=== PATIENT | male | born 1935 | race Caucasian/White ===

== ENCOUNTER 2019-08-14 09:02 | Emergency (ER) | payer MEDICARE, BC ==
--- NOTE | 2019-08-14 09:56 | CT ---
[id number] CT/CT Head Stroke Protocol EXAM: CT Head Stroke Protocol CLINICAL DATA: POSSIBLE STROKE. COMPARISON STUDY: July 2016. FINDINGS: Encephalomalacia in the left frontal and parietal lobes as well as the right inferior cerebellar hemisphere. 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 Additionally there is a left superior basal ganglia lacunar infarction. Cystic structure in the inferior left basal ganglia could represent either lacunar infarction or dilated perivascular space given its location. There is also diffuse parenchymal atrophy throughout posterior hemispheres most prominent in the frontal lobes. No evidence of acute intracranial hemorrhage. No extra-axial fluid collection or hydrocephalus. Mild left maxillary mucosal thickening. Mastoid air cells are clear. IMPRESSION: No acute intracranial findings. Chronic findings are described above. Results relayed to provider at 0945 hours. Henok Mendoza MD 08/14/19 0955 Thank you for allowing us to participate in the care of your patient.
[2019-08-14 10:01] LABS: CHLORIDE,CL 107 mmol/L (98-107); SODIUM,NA 143 mmol/L (136-145)
[2019-08-14 10:02] LABS: ANION GAP 12.4 mmol/L (10-20)
--- NOTE | 2019-08-14 11:23 | CR ---
[id number] RAD/RAD Chest PA or AP 1V EXAM: RAD Chest PA or AP 1V INDICATION: WEAKNESS. COMPARISON: None. DISCUSSION: Heart is enlarged with central vascular congestion. Low lung volumes result in bibasal vascular crowding/atelectasis. IMPRESSION: No acute findings. Henok Mendoza MD 08/14/19 1122 Thank you for allowing us to participate in the care of your patient.
--- NOTE | 2019-08-14 11:27 | EDM.PDOC ---
ED HPI GENERAL MEDICAL PROBLEM - General Chief Complaint: Neuro Symptoms/Deficits Stated Complaint: STROKE CODE Time Seen by Provider: 08/14/19 09:15 Source of Information: Reports: Patient, EMS, Family, RN History Limitations: Reports: No Limitations - History of Present Illness INITIAL COMMENTS - FREE TEXT/NARRATIVE: Pt is here for a STROKE CODE. was initially seen as a stroke code. He got up this morning and was in his usual state of health. He is always wobbly. He went down 17 stairs and went to the bathroom. He came back up the 17 stairs. His spoke with him and he was speaking normally. When he got to the top of the stairs he became light headed and fell into the wall, breaking the wall in with his elbow. At this point his noted that his speech was garbled. This was at 0817. She called 911 and EMS arrived at 0833. EMS found him with garbled speech but no other obvious neuro abnormalities. - Related Data Allergies Allergy/AdvReac Type Severity Reaction Status Date / Time acetaminophen [From [place]] Allergy Shortness Verified 08/14/19 09:56 of Breath atenolol Allergy Other Verified 08/14/19 09:56 baclofen Allergy Other Verified 08/14/19 09:56 cefixime [From Suprax] Allergy Other Verified 08/14/19 09:56 etodolac Allergy Other Verified 08/14/19 09:56 fenoprofen [From [place]] Allergy Itching Verified 08/14/19 09:56 hydrocodone [From [place]] Allergy Shortness Verified 08/14/19 09:56 of Breath meclofenamic acid Allergy Other Verified 08/14/19 09:56 [From Meclomen] orphenadrine [From Norflex] Allergy Nausea and Verified 08/14/19 09:56 Vomiting Penicillins Allergy Rash Verified 08/14/19 09:56 aspirin AdvReac Stomach Verified 08/14/19 09:56 Ache atorvastatin [From Lipitor] AdvReac Stomach Verified 08/14/19 09:56 Ache clopidogrel [From Plavix] AdvReac Bleeding Verified 08/14/19 09:56 codeine AdvReac Confusion Verified 08/14/19 09:56 corn AdvReac Stomach Verified 08/14/19 09:56 Ache dipyridamole [From Aggrenox] AdvReac Stomach Verified 08/14/19 09:56 Upset duloxetine [From Cymbalta] AdvReac Diarrhea Verified 08/14/19 09:56 Egg Derived AdvReac Nausea Verified 08/14/19 09:56 ezetimibe [From Vytorin] AdvReac Stomach Verified 08/14/19 09:56 Ache indomethacin [From Indocin] AdvReac Stomach Verified 08/14/19 09:56 Ache ketoprofen [From Orudis] AdvReac Stomach Verified 08/14/19 09:56 Ache lisinopril [From Zestril] AdvReac Stomach Verified 08/14/19 09:56 Ache naproxen [From Anaprox] AdvReac Stomach Verified 08/14/19 09:56 Ache NSAIDS (Non-Steroidal AdvReac Stomach Verified 08/14/19 09:56 Anti-Inflamma Ache oxycodone [From Percodan] AdvReac Nausea Verified 08/14/19 09:56 pentazocine [From Talwin] AdvReac Stomach Verified 08/14/19 09:56 Ache piroxicam [From Feldene] AdvReac Stomach Verified 08/14/19 09:56 Ache rosuvastatin [From Crestor] AdvReac Stomach Verified 08/14/19 09:56 Ache simvastatin [From Vytorin] AdvReac Stomach Verified 08/14/19 09:56 Ache sulindac [From Clinoril] AdvReac Stomach Verified 08/14/19 09:56 Upset tizanidine AdvReac Nausea Verified 08/14/19 09:56 Home Meds: Home Meds Acetaminophen [Tylenol Extra Strength] 500 - 1,000 mg PO Q4H PRN 01/14/17 [ History] Albuterol [IJD: Albuterol HFA] 1 puff PO Q4H PRN 01/14/17 [History] Cyanocobalamin (Vitamin B-12) [B-12] 500 mcg PO DAILY 01/14/17 [History] Diazepam [Valium] 5 mg PO BEDTIME PRN 01/14/17 [History] Propylene Glycol/Peg 400 [Systane 0.3-0.4% Eye Drops] 1 drop EYERT Q4H PRN 01/14 [History] Terazosin [Hytrin] 10 mg PO BID 01/14/17 [History] amLODIPine [Norvasc] 5 mg PO BID 01/14/17 [History] Vit A and D3 in Cod Liver Oil [Cod Liver Oil Softgel] 1 cap PO BID 10/23/17 [ History] Cyclobenzaprine [Flexeril] 5 mg PO BEDTIME 07/21/18 [History] Ranitidine [Zantac] 150 mg PO DAILY PRN 07/21/18 [History] Losartan Potassium 50 mg PO DAILY 10/13/18 [History] Multivitamin [Multi-Vitamin Daily] 1 tab PO DAILY 10/13/18 [History] traMADol [Ultram] 50 mg PO Q4H PRN 30 Days #240 tablet 06/11/19 [Rx] Past Medical History HEENT History: Reports: Allergic Rhinitis, Cataract Cardiovascular History: Reports: Heart Failure, Hypertension, Other (See Below) Other Cardiovascular History: mitrial regurgitation Respiratory History: Reports: Asthma, Sleep Apnea Gastrointestinal History: Reports: GERD Genitourinary History: Reports: BPH, Chronic Renal Insuffiency PRIOR AUTHORIZATION NURSE History: Reports: None Musculoskeletal History: Reports: Back Pain, Chronic, Osteoarthritis, Other ( See Below) Neurological History: Reports: CVA, Headaches, Chronic Other Neuro History: bilat. carotid stenosis Psychiatric History: Reports: Anxiety, Depression Other Endocrine/Metabolic History: impaired fasting glucose Hematologic History: Reports: Anemia, B12 Deficiency Immunologic History: Reports: None Oncologic (Cancer) History: Reports: Prostate Dermatologic History: Reports: None - Past Surgical History HEENT Surgical History: Reports: Cataract Surgery Respiratory Surgical History: Reports: Other (See Below) Other Respiratory Surgeries/Procedures: diaphramatic hernia Other Neurological Surgeries/Procedures: Implanted pain infusion device. - Past Imaging History Past Imaging History: Reports: MRI, Xray Social & Family History - Family History Oncologic: Reports: Skin - Living Situation & Occupation Living situation: Reports: , with Spouse Occupation: Retired ED ROS GENERAL - Review of Systems Review Of Systems: See Below Neurological: Reports: Weakness Psychiatric: Reports: No Symptoms Free Text/Narrative/Comment: Patient admits to weakness. He states he had light-headedness and was very off balance with direct questions. He reports mainly weakness. He states he has a chronic back injury and is treated for this with medication. He has not had any medication this morning yet. He has not eaten. He denies any pain. Denies chest pain, headache. Denies shortness of breath or cough. He denies any significant problem with edema. He denies nausea or vomiting. ED EXAM, NEURO - Physical Exam Exam: See Below Exam Limited By: No Limitations General Appearance: Alert, WD/WN, No Apparent Distress, Obese Eye Exam: Bilateral Eye: Conjunctival Injection, EOMI, Nystagmus (No nystagmus to EOM), PERRL, Vision Changes (Not recent but since cataract surgery) Ears: Normal External Exam, Other (bilateral hearing aides in place) Nose: Normal Inspection Throat/Mouth: Normal Inspection, Normal Oropharynx, No Airway Compromise, Other (initially had mild left facial droop) Head Exam: Atraumatic, Normocephalic, Facial Swelling (He has puffiness below eyes bilaterally which may be his norm) Neck: Normal Inspection, Non-Tender, Carotid Bruit Respiratory/Chest: No Respiratory Distress, Lungs Clear Cardiovascular: Regular Rate, Rhythm, No Edema (He has about 1+ pitting edema to LLL), Systolic Murmur, Other (Occasional irregular beat with Gr 3/6 murmur throughout; louder at aortic area; radiates to left carotid) GI/Abdominal: Normal Bowel Sounds, Non-Tender. No: Rebound Neurological: Alert, Normal Mood/Affect, CN II-XII Intact, Normal Plantar Flexion, Oriented x 3, Abnormal Gait, Difficulty Walking. No: Normal Gait Extremities: Normal Inspection, Pedal Edema (LLL) Psychiatric: Normal Affect, Normal Mood Skin Exam: Warm, Dry, Intact, Normal Color EKG INTERPRETATION EKG Date: 08/14/19 Time: 09:29 Rhythm: Other (Sinus or ectopic atrial rhythm; RBBB, neg T 2,3,avF; no acute ischemic changes) Rate (Beats/Min): 66 Course - Orders/Labs/Meds Orders: Active Orders 24 hr Category Date Time Status EKG 12 Lead [EKG Documentation Completion] [RC] STAT Care 08/14/19 09:53 Active Labs: Laboratory Tests 08/14/19 08/14/19 08/14/19 Range/Units 09:40 09:40 09:40 WBC 6.9 (4.0-10.0) x10^3/uL RBC 4.81 (4.5-6.0) x10^6/uL Hgb 14.1 (14.0-18.0) g/dL Hct 43.6 (40.0-52.0) % MCV 90.6 (78.0-93.0) fL MCH 29.3 (26.0-32.0) pg MCHC 32.3 (32.0-36.0) g/dL RDW Coeff of Shadi 13.3 (10.0-15.0) % Plt Count 233 (130-400) x10^3/uL Neut % (Auto) 48.6 L (50.0-80.0) % Lymph % (Auto) 36.0 (25.0-50.0) % [place] % (Auto) 10.4 (2.0-11.0) % Eos % (Auto) 4.6 H (0.0-4.0) % Baso % (Auto) 0.4 (0.2-1.2) % PT 10.4 (10.0-12.8) SEC INR 0.9 L (2.0-3.5) Sodium 143 (136-145) mmol/L Potassium 4.4 (3.5-5.1) mmol/L Chloride 107 (98-107) mmol/L Carbon Dioxide 28 (21-32) mmol/L Anion Gap 12.4 (10-20) mmol/L BUN 25 H (7-18) mg/dL Creatinine 1.4 H (0.70-1.30) mg/dL Est Cr Clr Drug Dosing TNP Estimated GFR (MDRD) 48 Glucose 98 (74-106) mg/dL Calcium 8.8 (8.5-10.1) mg/dL Troponin I (<=0.056) ng/mL C-Reactive Protein (<=0.9) mg/dL Urine Color (YELLOW) Urine Appearance (CLEAR) Urine pH (5.0-8.0) Ur Specific [place] Urine Protein (NEGATIVE) mg/dL Urine Glucose (UA) (NEGATIVE) mg/dL Urine Ketones (NEGATIVE) mg/dL Urine Occult Blood (NEGATIVE) Urine Nitrite (NEGATIVE) Urine Bilirubin (NEGATIVE) Urine Urobilinogen (0.2) EU/dL Ur Leukocyte Esterase (NEGATIVE) Urine RBC (NOT SEEN) /HPF Urine WBC (NOT SEEN) /HPF Ur Squamous Epith Cells (NEGATIVE) /HPF Amorphous Sediment Urine Bacteria (NEGATIVE) /HPF Urine Mucus (NEGATIVE) /LPF 08/14/19 08/14/19 Range/Units 09:40 11:18 WBC (4.0-10.0) x10^3/uL RBC (4.5-6.0) x10^6/uL Hgb (14.0-18.0) g/dL Hct (40.0-52.0) % MCV (78.0-93.0) fL MCH (26.0-32.0) pg MCHC (32.0-36.0) g/dL RDW Coeff of Shadi (10.0-15.0) % Plt Count (130-400) x10^3/uL Neut % (Auto) (50.0-80.0) % Lymph % (Auto) (25.0-50.0) % [place] % (Auto) (2.0-11.0) % Eos % (Auto) (0.0-4.0) % Baso % (Auto) (0.2-1.2) % PT (10.0-12.8) SEC INR (2.0-3.5) Sodium (136-145) mmol/L Potassium (3.5-5.1) mmol/L Chloride (98-107) mmol/L Carbon Dioxide (21-32) mmol/L Anion Gap (10-20) mmol/L BUN (7-18) mg/dL Creatinine (0.70-1.30) mg/dL Est Cr Clr Drug Dosing Estimated GFR (MDRD) Glucose (74-106) mg/dL Calcium (8.5-10.1) mg/dL Troponin I 0.021 (<=0.056) ng/mL C-Reactive Protein 0.6 (<=0.9) mg/dL Urine Color Yellow (YELLOW) Urine Appearance Cloudy H (CLEAR) Urine pH 5.0 (5.0-8.0) Ur Specific [place] 1.020 Urine Protein Negative (NEGATIVE) mg/dL Urine Glucose (UA) Negative (NEGATIVE) mg/dL Urine Ketones Negative (NEGATIVE) mg/dL Urine Occult Blood Trace-lysed H (NEGATIVE) Urine Nitrite Negative (NEGATIVE) Urine Bilirubin Negative (NEGATIVE) Urine Urobilinogen 0.2 (0.2) EU/dL Ur Leukocyte Esterase Small H (NEGATIVE) Urine RBC 0-5 (NOT SEEN) /HPF Urine WBC 5-10 H (NOT SEEN) /HPF Ur Squamous Epith Cells Not seen (NEGATIVE) /HPF Amorphous Sediment Rare Urine Bacteria Rare (NEGATIVE) /HPF Urine Mucus Few H (NEGATIVE) /LPF - Radiology Interpretation CT Results Date: 08/14/19 (Negative for bleed) CT Results Time: 09:53 Departure - Departure Time of Disposition: 11:54 Disposition: DC/Tfer to Other 70 Condition: Serious Clinical Impression: Syncope - Discharge Information *PRESCRIPTION DRUG MONITORING PROGRAM REVIEWED*: Not Applicable *COPY OF PRESCRIPTION DRUG MONITORING REPORT IN PATIENT [place]CH[place]: Not Applicable Referrals: Mehreen Ace, DO [Primary Care Provider] - Forms: ED Department Discharge, Interfacility Transfer [facility] Sepsis Event Note - Focused Exam Date Exam was Performed: 08/14/19 Time Exam was Performed: 11:59 ED Communication - ED Communication Date/Time Date: 08/14/19 Time Called: 11:50 - Discussed Case With (1) Discussed Case With (1): Other (Neurologist; stroke team) Person/s Notified (1): Behzad Arreola Date: 08/14/19 - Conversation Summary Siderographist Accepted Inpatient Consultation: Yes Patient Aware of Amendments fo Care Plan: Yes Patient's POA/Guardian Aware of Amendments to Care Plan: Yes Summary Comment: Neurologist feels he needs further workup due to continued balance loss. He needs MRI, MRA - Problem List Review Problem List Initiated/Reviewed/Updated: Yes - My Orders Last 24 Hours: My Active Orders 08/14/19 09:53 EKG 12 Lead [EKG Documentation Completion] [RC] STAT - Assessment/Plan Last 24 Hours: My Active Orders 08/14/19 09:53 EKG 12 Lead [EKG Documentation Completion] [RC] STAT Plan: He arrived at out facility as a STROKE CODE. Stroke protocol was carried out. Within a few minutes his speech had cleared and he was alert, oriented and appropriate answering questions appropriately and speaking spontaneously. Labs were not remarkable. EKG without acute change. NHS score 2 for slurred understandable speech and weakness. No lateralizing weakness except questionable minimal left facial droop which resolved. After symptoms resolved he continues to deny pain or other problem. CXR was obtained per portable as he was unable to stand. CXR without acute findings. We stood patient and he was weak and wobbly but c/o feelings of light- headedness. BP 170/72 p 73 and essentially unchanged with standing. Remainder of exam is unchanged and negative for neuro abnormalities. Spoke with Dr. Arreola, neurology at [place] regarding patient. He will accept pt for further workup and treatment of his symptoms. Patient Discharged to ALS ambulance in hemodynamically stable condition
== END 2019-08-14 12:55 | disposition short-term general hospital (02) ==
LOC: VM.ED 09:02 → SUPCPDRO 09:02 → VM.ED 12:55
DX: R55 Syncope and collapse (principal); I13.0 Hypertensive heart and chronic kidney disease with heart failure and stage 1 through stage 4 chronic kidney disease, or unspecified chronic kidney disease; I50.9 Heart failure, unspecified; N18.9 Chronic kidney disease, unspecified; J45.909 Unspecified asthma, uncomplicated; Z86.73 Personal history of transient ischemic attack (TIA), and cerebral infarction without residual deficits; Z98.49 Cataract extraction status, unspecified eye; Z88.8 Allergy status to other drugs, medicaments and biological substances; Z88.5 Allergy status to narcotic agent; Z88.0 Allergy status to penicillin; Z88.6 Allergy status to analgesic agent; Z91.012 Allergy to eggs
CPT/HCPCS: 70450; 71045; 80048; 81001; 82962; 84484; 85025; 85610; 86140; 93005; 93010; 99284-GF; 99285-25

== ENCOUNTER 2019-08-19 11:43 | Emergency (ER) | payer MEDICARE, BC ==
[2019-08-19] MEDS ORDERED: Succinylcholine 200 MG/10 ML MDV ONE (11:55)
[2019-08-19] MEDS ORDERED: Rocuronium 50 MG/5 ML Vial ONE (11:55)
[2019-08-19] MEDS ORDERED: Sodium Chloride 0.9% 10 ML Syringe FLUSH PRN (12:09)
[2019-08-19] MEDS ORDERED: Midazolam 1 MG/ML 2 ML SDV IVPUSH PRN (12:12)
[2019-08-19] MEDS ORDERED: Succinylcholine 200 MG/10 ML MDV IV STA (12:12)
[2019-08-19] MEDS ORDERED: Etomidate 2 MG/ML 10 ML SDV IVPUSH ONE (12:12)
[2019-08-19] MEDS ORDERED: fentaNYL 100 MCG/2 ML SDV IVPUSH ONE (12:12)
[2019-08-19] MEDS ORDERED: propofoL 50 ML IV SCH (12:15)
--- NOTE | 2019-08-19 12:22 | CT ---
[id number] CT/CT Head Stroke Protocol EXAM: NONCONTRAST HEAD CT INDICATION: STROKE. COMPARISON: August 14, 2019. DISCUSSION: Subtle hypoattenuation is suggested in the superior aspect of the right cerebral hemisphere which could relate to an acute to subacute infarct. MRI or follow-up imaging could provide further assessment. A chronic inferior right cerebellar infarct, left basal ganglia, left frontal and left parietal infarcts are stable. Stable mild to moderate generalized atrophy and mild chronic small vessel ischemic changes. No midline shift, hydrocephalus, acute hemorrhage or extra-axial collection is identified. Results called at 1210 on 08/19/2019. IMPRESSION: 1. Findings suspicious for an acute to subacute right superior cerebellar infarct. Deion Chaidez MD 08/19/19 1222 Thank you for allowing us to participate in the care of your patient.
[2019-08-19 12:32] LABS: BARBITURATE SCREEN,URINE NEGATIVE (NEGATIVE); BENZODIAZEPINES SCREEN,URINE POSITIVE (NEGATIVE); EDDP,URINE SCREEN NEGATIVE (NEGATIVE); METHAMPHETAMINE SCREEN, URINE NEGATIVE (NEGATIVE); TCA SCREEN,URINE POSITIVE (NEGATIVE); THC SCREEN,URINE 50 NG/ML NEGATIVE (NEGATIVE)
[2019-08-19 12:37] LABS: CHLORIDE,CL 105 mmol/L (98-107); SODIUM,NA 142 mmol/L (136-145)
[2019-08-19 12:39] LABS: ANION GAP 15.3 mmol/L (10-20)
--- NOTE | 2019-08-19 12:58 | EDM.PDOC ---
ED HPI GENERAL MEDICAL PROBLEM - General Stated Complaint: STROKE CODE Time Seen by Provider: 08/19/19 12:55 Source of Information: Reports: EMS, Family History Limitations: Reports: Altered Mental Status (Pt is minimally responsive to painful stimulation. ) - History of Present Illness INITIAL COMMENTS - FREE TEXT/NARRATIVE: Stroke code and team activated prior to the patient arrival and was present on pt arrival and pt directly to the CT scanner upon EMS arrival. Patient comes emergency department today by ambulance from home after being found unresponsive this morning. Patient was just discharged on the from [facility] following a TIA on Friday. When he went home on Friday he continued to have problems with what appears to be dizziness unsteadiness nausea and vomiting. Information is all obtained from the as the patient is unresponsive. Last night before going to bed the patient again was worsening and told his that he thought that he was having another stroke. They talked him into bed and he went to sleep. At 4:00 he woke up to use the urinal and was somewhat more confused and quite a bit more unsteady on his feet. He was once again talked back in the bed. This morning he slept in quite a bit longer than he normally would and about 1030 they realized that this is not normal for him so they went into check on him and they were unable to wake him up and noticed that his breathing was quite different. The ambulance was summoned. He had a normal blood sugar. The reports no recent falls or head trauma. He has taken his medication appropriately. According to the the stroke center in [place] wanted to put him on aspirin and Plavix although he refused. Rest of the HPI is unobtainable as the patient is unresponsive. - Related Data Allergies Allergy/AdvReac Type Severity Reaction Status Date / Time acetaminophen [From [place]] Allergy Shortness Verified 08/14/19 09:56 of Breath atenolol Allergy Other Verified 08/14/19 09:56 baclofen Allergy Other Verified 08/14/19 09:56 cefixime [From Suprax] Allergy Other Verified 08/14/19 09:56 etodolac Allergy Other Verified 08/14/19 09:56 fenoprofen [From [place]] Allergy Itching Verified 08/14/19 09:56 hydrocodone [From [place]] Allergy Shortness Verified 08/14/19 09:56 of Breath meclofenamic acid Allergy Other Verified 08/14/19 09:56 [From Meclomen] orphenadrine [From Norflex] Allergy Nausea and Verified 08/14/19 09:56 Vomiting Penicillins Allergy Rash Verified 08/14/19 09:56 aspirin AdvReac Stomach Verified 08/14/19 09:56 Ache atorvastatin [From Lipitor] AdvReac Stomach Verified 08/14/19 09:56 Ache clopidogrel [From Plavix] AdvReac Bleeding Verified 08/14/19 09:56 codeine AdvReac Confusion Verified 08/14/19 09:56 corn AdvReac Stomach Verified 08/14/19 09:56 Ache dipyridamole [From Aggrenox] AdvReac Stomach Verified 08/14/19 09:56 Upset duloxetine [From Cymbalta] AdvReac Diarrhea Verified 08/14/19 09:56 Egg Derived AdvReac Nausea Verified 08/14/19 09:56 ezetimibe [From Vytorin] AdvReac Stomach Verified 08/14/19 09:56 Ache indomethacin [From Indocin] AdvReac Stomach Verified 08/14/19 09:56 Ache ketoprofen [From Orudis] AdvReac Stomach Verified 08/14/19 09:56 Ache lisinopril [From Zestril] AdvReac Stomach Verified 08/14/19 09:56 Ache naproxen [From Anaprox] AdvReac Stomach Verified 08/14/19 09:56 Ache NSAIDS (Non-Steroidal AdvReac Stomach Verified 08/14/19 09:56 Anti-Inflamma Ache oxycodone [From Percodan] AdvReac Nausea Verified 08/14/19 09:56 pentazocine [From Talwin] AdvReac Stomach Verified 08/14/19 09:56 Ache piroxicam [From Feldene] AdvReac Stomach Verified 08/14/19 09:56 Ache rosuvastatin [From Crestor] AdvReac Stomach Verified 08/14/19 09:56 Ache simvastatin [From Vytorin] AdvReac Stomach Verified 08/14/19 09:56 Ache sulindac [From Clinoril] AdvReac Stomach Verified 08/14/19 09:56 Upset tizanidine AdvReac Nausea Verified 08/14/19 09:56 Home Meds: Home Meds Acetaminophen [Tylenol Extra Strength] 500 - 1,000 mg PO Q4H PRN 01/14/17 [ History] Albuterol [IJD: Albuterol HFA] 1 puff PO Q4H PRN 01/14/17 [History] Cyanocobalamin (Vitamin B-12) [B-12] 500 mcg PO DAILY 01/14/17 [History] Diazepam [Valium] 5 mg PO BEDTIME PRN 01/14/17 [History] Propylene Glycol/Peg 400 [Systane 0.3-0.4% Eye Drops] 1 drop EYERT Q4H PRN 01/14 [History] Terazosin [Hytrin] 10 mg PO BID 01/14/17 [History] amLODIPine [Norvasc] 5 mg PO BID 01/14/17 [History] Vit A and D3 in Cod Liver Oil [Cod Liver Oil Softgel] 1 cap PO BID 10/23/17 [ History] Cyclobenzaprine [Flexeril] 5 mg PO BEDTIME 07/21/18 [History] Ranitidine [Zantac] 150 mg PO DAILY PRN 07/21/18 [History] Losartan Potassium 50 mg PO DAILY 10/13/18 [History] Multivitamin [Multi-Vitamin Daily] 1 tab PO DAILY 10/13/18 [History] traMADol [Ultram] 50 mg PO Q4H PRN 30 Days #240 tablet 06/11/19 [Rx] Past Medical History HEENT History: Reports: Allergic Rhinitis, Cataract Cardiovascular History: Reports: Heart Failure, Hypertension, Other (See Below) Other Cardiovascular History: mitrial regurgitation Respiratory History: Reports: Asthma, Sleep Apnea Gastrointestinal History: Reports: GERD Genitourinary History: Reports: BPH, Chronic Renal Insuffiency MANAGED CARE SPECIALIST History: Reports: None Musculoskeletal History: Reports: Back Pain, Chronic, Osteoarthritis, Other ( See Below) Neurological History: Reports: CVA, Headaches, Chronic Other Neuro History: bilat. carotid stenosis Psychiatric History: Reports: Anxiety, Depression Other Endocrine/Metabolic History: impaired fasting glucose Hematologic History: Reports: Anemia, B12 Deficiency Immunologic History: Reports: None Oncologic (Cancer) History: Reports: Prostate Dermatologic History: Reports: None - Past Surgical History HEENT Surgical History: Reports: Cataract Surgery Respiratory Surgical History: Reports: Other (See Below) Other Respiratory Surgeries/Procedures: diaphramatic hernia Other Neurological Surgeries/Procedures: Implanted pain infusion device. - Past Imaging History Past Imaging History: Reports: MRI, Xray Social & Family History - Family History Oncologic: Reports: Skin - Living Situation & Occupation Living situation: Reports: , with Spouse Occupation: Retired ED ROS GENERAL - Review of Systems Review Of Systems: Unable To Obtain Reason Not Obtained: Unresponsive ED EXAM, NEURO - Physical Exam Exam: See Below Text/Narrative:: Noted regular deep snoring respirations with see saw respirations of the abd. No spontaneous movement of his extremities. Minimal withdrawal to very painful stimulation. Exam Limited By: Altered Mental Status General Appearance: Obtunded Eye Exam: Bilateral Eye: Other (Pinpoint pupils bilaterally not responsive. ) Ears: Normal External Exam, Normal TMs Throat/Mouth: Normal Inspection, Normal Lips Neck: Normal Inspection Respiratory/Chest: Lungs Clear, Respiratory Distress, Decreased Breath Sounds, Accessory Muscle Use (See saw respirations) Cardiovascular: Normal Peripheral Pulses, Regular Rate, Rhythm, No Murmur GI/Abdominal: Normal Bowel Sounds, Soft, No Abnormal Bruit Neurological: Withdraws to Pain (Minimal withdrawal to pain) Extremities: Normal Inspection (although no spontaneous movement of any extremities. ) Skin Exam: Dry, Intact, Cool ED NEURO PROCEDURES - Endotracheal Intubation Time of Intubation: 12:55 ET Intubation Indication: Respiratory Failure, Airway Protection Preparation: Suction, Balloon Tested, BVM Set Up, Difficult Airway Equip Airway Assessment: Obese Pre-Oxygenation: Assisted with BVM, 100% FiO2 Anesthesia Meds: Etomidate, Fentanyl, Succinylcholine Placement: Orotracheal Cords Visualized: Yes ETT Size In mm: 705 Number of Attempts: 1 Confirmed By: CO2 Indicator, Bilateral Breath Sounds, Chest Xray Tube Secured By: By RT Endotracheal Intubation Comment: Negative epigastric sounds. Positive EtCo2. Connected to LTV ventilator. Assist/control R 12, Tv 500, 50% Peep 5. EKG INTERPRETATION EKG Date: 08/19/19 Time: 12:14 Rhythm: NSR Rate (Beats/Min): 82 Baird: RAD-Right Baird Deviation P-Wave: Present QRS: RBBB ST-T: Depressed (? in V5,V4) QT: Normal Course - Orders/Labs/Meds Orders: Active Orders 24 hr Category Date Time Status EKG Documentation Completion [RC] STAT Care 08/19/19 12:09 Active RT Ventilator ED, Adult [RC] CONTINUOUS Care 08/19/19 12:30 Active Midazolam [Versed 1 MG/ML] Med 08/19/19 12:12 Active 2 mg IVPUSH ASDIRECTED PRN Sodium Chloride 0.9% [Saline Flush] Med 08/19/19 12:09 Active 10 ml FLUSH ASDIRECTED PRN propofoL [Diprivan 50 ML] 50 ml Med 08/19/19 12:15 Active IV .TITRATE Peripheral IV Insertion Adult [OM.PC] Stat Oth 08/19/19 12:09 Ordered Medication Orders Propofol (Diprivan 50 Ml) 50 mls @ 5.7 mls/hr IV .TITRATE NATHANAEL; Protocol Midazolam HCl (Versed 1 Mg/Ml) 2 mg IVPUSH ASDIRECTED PRN PRN Reason: Anxiety Sodium Chloride (Saline Flush) 10 ml FLUSH ASDIRECTED PRN PRN Reason: Keep Vein Open Labs: Laboratory Tests 08/19/19 08/19/19 08/19/19 Range/Units 12:04 12:04 12:04 WBC 10.7 H (4.0-10.0) x10^3/uL RBC 4.77 (4.5-6.0) x10^6/uL Hgb 13.9 L (14.0-18.0) g/dL Hct 43.3 (40.0-52.0) % MCV 90.8 (78.0-93.0) fL MCH 29.1 (26.0-32.0) pg MCHC 32.1 (32.0-36.0) g/dL RDW Coeff of Shadi 13.3 (10.0-15.0) % Plt Count 257 (130-400) x10^3/uL Neut % (Auto) 58.7 (50.0-80.0) % Lymph % (Auto) 30.8 (25.0-50.0) % [place] % (Auto) 8.4 (2.0-11.0) % Eos % (Auto) 1.7 (0.0-4.0) % Baso % (Auto) 0.4 (0.2-1.2) % Sodium 142 (136-145) mmol/L Potassium 4.3 (3.5-5.1) mmol/L Chloride 105 (98-107) mmol/L Carbon Dioxide 26 (21-32) mmol/L Anion Gap 15.3 (10-20) mmol/L BUN 30 H (7-18) mg/dL Creatinine 1.5 H (0.70-1.30) mg/dL Est Cr Clr Drug Dosing TNP Estimated GFR (MDRD) 45 Glucose 117 H (74-106) mg/dL Lactic Acid 0.7 (0.4-2.0) mmol/L Calcium 8.7 (8.5-10.1) mg/dL Corrected Calcium 9.18 (8.5-10.1) mg/dL Magnesium 2.1 (1.8-2.4) mg/dL Total Bilirubin 0.4 (0.2-1.0) mg/dL AST 29 (15-37) U/L ALT 67 H (16-63) U/L Alkaline Phosphatase 59 (46-116) U/L POC Troponin I (0.00-0.08) ng/mL Troponin I Cancelled C-Reactive Protein 0.9 (<=0.9) mg/dL Total Protein 6.9 (6.4-8.2) g/dL Albumin 3.4 (3.4-5.0) g/dL Globulin 3.5 Albumin/Globulin Ratio 0.97 Urine Color (YELLOW) Urine Appearance (CLEAR) Urine pH (5.0-8.0) Ur Specific [place] Urine Protein (NEGATIVE) mg/dL Urine Glucose (UA) (NEGATIVE) mg/dL Urine Ketones (NEGATIVE) mg/dL Urine Occult Blood (NEGATIVE) Urine Nitrite (NEGATIVE) Urine Bilirubin (NEGATIVE) Urine Urobilinogen (0.2) EU/dL Ur Leukocyte Esterase (NEGATIVE) U Hyaline Cast (Auto) Urine RBC (NOT SEEN) /HPF Urine WBC (NOT SEEN) /HPF Ur Squamous Epith Cells (NEGATIVE) /HPF Amorphous Sediment Urine Bacteria (NEGATIVE) /HPF Urine Mucus (NEGATIVE) /LPF Urine Opiates Screen (NEAGTIVE) Ur Buprenorphine Scrn (NEGATIVE) Ur Oxycodone Screen (NEGATIVE) Ur EDDP (Meth Metab) (NEGATIVE) Urine Methadone Screen (NEGATIVE) Ur Barbiturates Screen (NEGATIVE) Ur Tricyclics Screen (NEGATIVE) Ur Phencyclidine Scrn (NEGATIVE) Ur Amphetamine Screen (NEGATIVE) U Methamphetamines Scrn (NEGATIVE) Urine MDMA Screen (NEGATIVE) U Benzodiazepines Scrn (NEGATIVE) U Cocaine Metab Screen (NEGATIVE) U Marijuana (THC) Screen (NEGATIVE) Ethyl Alcohol < 3 (0-3) mg/dL 08/19/19 08/19/19 08/19/19 Range/Units 12:07 12:20 12:20 WBC (4.0-10.0) x10^3/uL RBC (4.5-6.0) x10^6/uL Hgb (14.0-18.0) g/dL Hct (40.0-52.0) % MCV (78.0-93.0) fL MCH (26.0-32.0) pg MCHC (32.0-36.0) g/dL RDW Coeff of Shadi (10.0-15.0) % Plt Count (130-400) x10^3/uL Neut % (Auto) (50.0-80.0) % Lymph % (Auto) (25.0-50.0) % [place] % (Auto) (2.0-11.0) % Eos % (Auto) (0.0-4.0) % Baso % (Auto) (0.2-1.2) % Sodium (136-145) mmol/L Potassium (3.5-5.1) mmol/L Chloride (98-107) mmol/L Carbon Dioxide (21-32) mmol/L Anion Gap (10-20) mmol/L BUN (7-18) mg/dL Creatinine (0.70-1.30) mg/dL Est Cr Clr Drug Dosing Estimated GFR (MDRD) Glucose (74-106) mg/dL Lactic Acid (0.4-2.0) mmol/L Calcium (8.5-10.1) mg/dL Corrected Calcium (8.5-10.1) mg/dL Magnesium (1.8-2.4) mg/dL Total Bilirubin (0.2-1.0) mg/dL AST (15-37) U/L ALT (16-63) U/L Alkaline Phosphatase (46-116) U/L POC Troponin I 0.03 (0.00-0.08) ng/mL Troponin I C-Reactive Protein (<=0.9) mg/dL Total Protein (6.4-8.2) g/dL Albumin (3.4-5.0) g/dL Globulin Albumin/Globulin Ratio Urine Color Dark yellow H (YELLOW) Urine Appearance Slightly cloudy H (CLEAR) Urine pH 5.0 (5.0-8.0) Ur Specific [place] 1.025 Urine Protein Negative (NEGATIVE) mg/dL Urine Glucose (UA) Negative (NEGATIVE) mg/dL Urine Ketones Negative (NEGATIVE) mg/dL Urine Occult Blood Trace-intact H (NEGATIVE) Urine Nitrite Negative (NEGATIVE) Urine Bilirubin Negative (NEGATIVE) Urine Urobilinogen 0.2 (0.2) EU/dL Ur Leukocyte Esterase Negative (NEGATIVE) U Hyaline Cast (Auto) Few Urine RBC 0-5 (NOT SEEN) /HPF Urine WBC 0-5 (NOT SEEN) /HPF Ur Squamous Epith Cells Rare (NEGATIVE) /HPF Amorphous Sediment Moderate Urine Bacteria Few H (NEGATIVE) /HPF Urine Mucus Many H (NEGATIVE) /LPF Urine Opiates Screen Negative (NEAGTIVE) Ur Buprenorphine Scrn Negative (NEGATIVE) Ur Oxycodone Screen Negative (NEGATIVE) Ur EDDP (Meth Metab) Negative (NEGATIVE) Urine Methadone Screen Negative (NEGATIVE) Ur Barbiturates Screen Negative (NEGATIVE) Ur Tricyclics Screen Positive H (NEGATIVE) Ur Phencyclidine Scrn Negative (NEGATIVE) Ur Amphetamine Screen Negative (NEGATIVE) U Methamphetamines Scrn Negative (NEGATIVE) Urine MDMA Screen Negative (NEGATIVE) U Benzodiazepines Scrn Positive H (NEGATIVE) U Cocaine Metab Screen Negative (NEGATIVE) U Marijuana (THC) Screen Negative (NEGATIVE) Ethyl Alcohol (0-3) mg/dL Meds: Medications Generic Name Dose Route Start Last Admin Trade Name Freq PRN Reason Stop Dose Admin Propofol 50 mls @ 5.7 mls/hr 08/19/19 12:15 Diprivan 50 Ml IV .TITRATE NATHANAEL Protocol 10 MCG/KG/MIN Midazolam HCl 2 mg 08/19/19 12:12 Versed 1 Mg/Ml IVPUSH ASDIRECTED PRN Anxiety Sodium Chloride 10 ml 08/19/19 12:09 Saline Flush FLUSH ASDIRECTED PRN Keep Vein Open Discontinued Medications Generic Name Dose Route Start Last Admin Trade Name Freq PRN Reason Stop Dose Admin Etomidate 20 mg 08/19/19 12:12 Amidate IVPUSH 08/19/19 12:13 ONETIME ONE Fentanyl 100 mcg 08/19/19 12:12 Sublimaze IVPUSH 08/19/19 12:13 ONETIME ONE Rocuronium [place] Confirm 08/19/19 11:55 Zemuron Administered 08/19/19 11:56 Dose 50 mg .ROUTE .STK-MED ONE Succinylcholine Chloride Confirm 08/19/19 11:55 Quelicin Administered 08/19/19 11:56 Dose 200 mg .ROUTE .STK-MED ONE Succinylcholine Chloride 100 mg 08/19/19 12:12 Quelicin IV 08/19/19 12:13 NOW STA - Radiology Interpretation Free Text/Narrative:: CT of the head per radiology is finding suspicious for an acute to subacute right superior cerebellar infarct Chest x-ray postintubation shows ET tube and NG tube in good position. - Re-Assessments/Exams Free Text/Narrative Re-Assessment/Exam: 08/19/19 14:34 Stroke team was activated prior to the patient's arrival and was present on the patient's arrival and went to the CAT scan immediately. I was in the room immediately upon the patient's arrival and the patient minimally withdrew to very painful stimulation. He had snoring respirations with Yunior all respirations and he was somewhat cyanotic. I spoke with the and she does not have any advanced directives and would like the patient intubated and everything done for him. After returning to the CT scan good IV was verified. RSI equipment difficult airway equipment as well as medications were prepared. The patient was given fentanyl and etomidate and succinylcholine for intubation. He was intubated with the glide scope with direct visualizations of the tube through the cords. Positive end-tidal CO2 lung sounds and negative epigastric sounds. Unable to place an OG, NG placed. Post intubation chest x-ray was completed and the patient was connected to the ventilator. Lab evaluation. Yao inserted. EKG is unremarkable. Laboratory evaluation is rather unremarkable as well. Per the stroke CT read it appears that he has a superior cerebellar infarct. I called and spoke with Dr. Sunshine HPI ER course findings concerns were relayed to him. He is the neuro critical care doctor personal shopper. Spoke with Dr. Lunsford who is the stroke neurologist as well. No new orders or cares at this time. The patient was given some versed as well but never started to over breath the vent. No spontaneous movement of any extremities. He did attempt to open his eyes a few times but did not make any other movements. Counceling and support was given to the family. His vitals were stable and he was [facility] with the ambulance for further care management. Departure - Departure Time of Disposition: 12:56 Disposition: DC/Tfer to [facility] Clinical Impression: Unresponsive, Cerebellar stroke, Required emergency intubation - Discharge Information Referrals: PCP,None [Primary Care Provider] - Forms: Interfacility Transfer EMTALA Critical Care Note - Critical Care Note Total Time (mins): 45 (45 minutes of direct critical care time and management reviewing records consultation with stroke team in [place] as well as counseling the family and bedside care this does not include separately individual billable procedure.) Sepsis Event Note - Focused Exam Date Exam was Performed: 08/19/19 Time Exam was Performed: 14:30 - My Orders Last 24 Hours: My Active Orders 08/19/19 12:09 EKG Documentation Completion [RC] STAT Sodium Chloride 0.9% [Saline Flush] 10 ml FLUSH ASDIRECTED PRN Peripheral IV Insertion Adult [OM.PC] Stat 08/19/19 12:12 Midazolam [Versed 1 MG/ML] 2 mg IVPUSH ASDIRECTED PRN 08/19/19 12:15 propofoL [Diprivan 50 ML] 50 ml IV .TITRATE 08/19/19 12:30 RT Ventilator ED, Adult [RC] CONTINUOUS - Assessment/Plan Last 24 Hours: My Active Orders 08/19/19 12:09 EKG Documentation Completion [RC] STAT Sodium Chloride 0.9% [Saline Flush] 10 ml FLUSH ASDIRECTED PRN Peripheral IV Insertion Adult [OM.PC] Stat 08/19/19 12:12 Midazolam [Versed 1 MG/ML] 2 mg IVPUSH ASDIRECTED PRN 08/19/19 12:15 propofoL [Diprivan 50 ML] 50 ml IV .TITRATE 08/19/19 12:30 RT Ventilator ED, Adult [RC] CONTINUOUS Assessment:: Superior Cerebellar stroke acute subacute. Unresponsive with snoring respirations requiring emergent RSI intubation. Recent TIA. Plan: Transfer by ground ambulance to [facility] for further care management.
--- NOTE | 2019-08-19 12:59 | CR ---
[id number] RAD/RAD Chest PA or AP 1V EXAM: SINGLE VIEW CHEST. INDICATION: STATUS POST INTUBATION COMPARISON: CORRELATION IS MADE WITH THE EXAM OF AUGUST 14, 2019 FINDINGS: The ET tube and NG tube are in good position There is volume loss at the lung bases The cardiomediastinal contour is stable IMPRESSION: ET TUBE AND NG TUBE IN GOOD POSITION Brandon Ventura MD 08/19/19 1607 Thank you for allowing us to participate in the care of your patient.
[2019-08-19] MEDS ORDERED: fentaNYL 100 MCG/2 ML SDV ONE (18:15)
[2019-08-19] MEDS ORDERED: Etomidate 2 MG/ML 10 ML SDV ONE (18:16)
== END 2019-08-19 13:20 | disposition short-term general hospital (02) ==
LOC: VM.ED 11:43
DX: I63.9 Cerebral infarction, unspecified (principal); R40.1 Stupor; I13.0 Hypertensive heart and chronic kidney disease with heart failure and stage 1 through stage 4 chronic kidney disease, or unspecified chronic kidney disease; N18.9 Chronic kidney disease, unspecified; I50.9 Heart failure, unspecified; J45.909 Unspecified asthma, uncomplicated; K21.9 Gastro-esophageal reflux disease without esophagitis; M19.90 Unspecified osteoarthritis, unspecified site; F41.9 Anxiety disorder, unspecified; F32.9 Major depressive disorder, single episode, unspecified; Z88.8 Allergy status to other drugs, medicaments and biological substances; Z88.5 Allergy status to narcotic agent; Z88.0 Allergy status to penicillin; Z88.1 Allergy status to other antibiotic agents; Z91.018 Allergy to other foods; Z91.012 Allergy to eggs; Z79.899 Other long term (current) drug therapy
CPT/HCPCS: 31500; 70450; 71045; 80053; 80305; 80307; 81001; 83605; 83735; 84484; 85025; 86140; 93005; 93010; 94002; 99285; 99291; G0390; J0330; J2250; J3010; J3490